=== PATIENT | female | born 1950 | race Caucasian/White ===

== ENCOUNTER 2023-01-08 11:10 | Day surgery (SDC) | payer MEDICARE ==
[2023-01-08] VITALS (8 sets, daily range): BP systolic 121–148; BP diastolic 48–119
[~2023-01-08] VITALS: Ht 162.6 cm; Wt 90.0 kg
[~2023-01-08 11:10] MED LIST: ATOR80 PO; BASAGLAR K100 UNIT/1; BUPR150ER PO; CALCIUM CITRAT200 MG PO; Chantix1 MG; GABA100 PO; Lisinopril-Hct1 EAC4 PO; METO50ER PO; MUPIROCIN2210; Norco 5-325 Ta1 EACH PO; TRULICITY4.5 MG/0.5 SQ
[2023-01-08] MEDS ORDERED: ASPIR 8181 M1 (12:37)
--- NOTE | 2023-01-08 14:20 | NUR ---
PATIENT ARRIVED TO RECOVERY ROOM CONVERSING APPROPRIATELY. HOB OF BED FLAT. R GROIN SITE WITH ANGIO SEAL C/D/I SOFT/NONTENDER, NO EVIDNECE OF HEMATOMA. NO EVIDENCE OF BLEEDING. VSS ON ROOM AIR.
--- NOTE | 2023-01-08 15:15 | NUR ---
PT HOB OF BED ELEVATED. PT TOLERATING PO INTAKE WELL. VSS ON ROOM AIR. R GROIN SITE C/D/I SOFT/NONTENDER, NO EVIDENCE OF HEMATOMA.
--- NOTE | 2023-01-08 16:12 | NUR ---
PATIENT SITTING UPRIGHT IN BED. R GROIN SITE C/D/I SOFT/NONTENDER, NO EVIDENCE OF BLEEDING. VSS ON ROOM AIR
--- NOTE | 2023-01-08 16:42 | NUR ---
SALINE LOCK REMOVED WITH CATHETER INTACT. PT GETTING UP AND GETTING DRESSED AT THIS TIME. R GROIN SITE STABLE.
--- NOTE | 2023-01-08 16:55 | NUR ---
PATIENT DISCHARGED HOME AT THIS TIME. DISCHARGE PAPERWORK REVIEWED WITH PATIENT AND DAUGHTER AT BEDSIDE. ALL QUESTIONS WERE ANSWERED, NO CHANGES TO MEDICATIONS. R GROIN SITE C/D/I SOFT/NONTENDER, NO EVIDENCE OF HEMATOMA. VSS ON ROOM AIR.
== END 2023-01-08 16:50 | disposition home or self-care (01) ==
LOC: MHTC 11:10
DX: I70.222 Atherosclerosis of native arteries of extremities with rest pain, left leg (principal); I75.022 Atheroembolism of left lower extremity; I10 Essential (primary) hypertension; E11.69 Type 2 diabetes mellitus with other specified complication; Z72.0 Tobacco use
CPT/HCPCS: 76937; 99152; 99153; C1725; C1760; C1769; C1887; C1894; J1200; J1644; J2250; J3010; J7030; J7050; Q9967